=== PATIENT | female | born 1990 | race American Indian/Alaskan Native ===

== ENCOUNTER 2017-01-30 18:34 | Emergency (ER) | payer SELFPAY ==
[2017-01-30 20:01] LABS: Basophils % (Auto) 0.6 % (0.0-1.8); Eosinophils % (Auto) 0.5 % (0.0-4.3); Hematocrit 40.2 % (30.3-42.9); Mean Corpuscular HGB Conc 32 % (30-34); Mean Corpuscular Volume 80 fl (79-97); Platelet Count 286 K/mm3 (140-440); Red Blood Count 5.03 M/mm3 (3.65-5.03); Red Cell Distribution Width 16.7 % (13.2-15.2); White Blood Count 5.3 K/mm3 (4.5-11.0)
[2017-01-30 20:03] LABS: Mean Corpuscular Hemoglobin 26 pg (28-32)
[2017-01-30] MEDS ORDERED: TYLENOL PO ONE (23:18)
[2017-01-30] MEDS ORDERED: NACL 0.9% 1000 ML 1,000 ML IV ONE (23:19)
[2017-01-30] MEDS ORDERED: ZOFRAN IV ONE (23:54)
[2017-01-31 00:20] LABS: Bilirubin,Urine NEG (Negative); Blood,Urine MOD (Negative); Ketones,Urine 80 mg/dL (Negative); Leukocyte Esterase,Urine SM (Negative); Mucus,Urine 3+ /HPF; Nitrite,Urine NEG (Negative)
--- NOTE | 2017-01-31 01:18 | Emergency Department Report ---
HPI - General Chief Complaint: Vaginal Bleeding Time Seen by Provider: 01/30/17 23:16 - HPI HPI: The patient is a 26-year-old , EGA unknown to her, female who presents for evaluation of abdominal pain and vaginal bleeding. The patient reports lower abdominal pain since 1pm earlier today, approximately 12 hours prior to my evaluation, 7/10 in severity, cramping in quality, constant since onset. She also reports minimal vaginal bleeding. The patient denies fever, trauma to the abdomen, diarrhea, blood in the stool, dark tarry stool, dysuria, hematuria, flank pain, genital discharge, inability to pass flatus. ED Past Medical Hx - Past Medical History Previous Medical History?: Yes Additional medical history: Tonsils - Surgical History Past Surgical History?: Yes Additional Surgical History: Tonsil removed - Social History Smoking Status: Current Every Day Smoker Substance Use Type: Alcohol - Medications Home Medications: Home Medications Medication Instructions Recorded Confirmed Last Taken Type Acetaminophen [Tylenol] 500 mg PO Q6HR #30 tablet 01/31/17 Unknown Rx Pnv95/Ferrous Fumarate/FA 1 each PO QDAY #31 tablet 01/31/17 Unknown Rx [ Vitamin Tablet] ED Review of Systems ROS: Stated complaint: BLEEDING /PREG Other details as noted in HPI Constitutional: denies: fever ENT: denies: throat or neck pain Respiratory: denies: cough, shortness of breath Cardiovascular: denies: chest pain Endocrine: denies unexplained weight loss or gain Gastrointestinal: reports abdominal pain, nausea Genitourinary: reports vaginal bleeding denies: dysuria Musculoskeletal: denies: leg swelling Skin: denies: rash Neurological: denies: headache Hematological/Lymphatic: denies: easy bleeding or easy bruising Psych: denies sadness or hopelessness Physical Exam - Physical Exam Vital Signs: Vital Signs 01/30/17 01/30/17 19:05 23:36 Temperature 98.7 F 97 F L Pulse Rate 91 H 80 Respiratory 18 18 Rate Blood Pressure 136/83 Blood Pressure 106/70 [Left] O2 Sat by Pulse 97 100 Oximetry Physical Exam: General: well-nourished, well-developed, no acute distress Head: Normocephalic, atraumatic Eyes: normal sclera ENT: Mucous membranes are pale and dry Neck: trachea midline, neck supple, No neck stiffness, no cervical adenopathy Respiratory: Breath sounds equal bilaterally, no wheezing, rales, or rhonchi Cardio: S1 and S2 present, no murmurs, rubs, gallops, capillary refill is delayed Abdomen: Normoactive bowel sounds, soft abdomen, suprapubic and bilateral lower quadrant tenderness to palpation present, no rigidity, no guarding or rebound tenderness Musc: No pitting edema Skin: No rash Neuro: no facial drooping, normal speech Psych: Normal affect ED Course Vital Signs 01/30/17 01/30/17 19:05 23:36 Temperature 98.7 F 97 F L Pulse Rate 91 H 80 Respiratory 18 18 Rate Blood Pressure 136/83 Blood Pressure 106/70 [Left] O2 Sat by Pulse 97 100 Oximetry ED Medical Decision Making - Lab Data Result diagrams: 01/30/17 19:46 01/31/17 00:43 - Medical Decision Making The patient was seen and examined by myself. The patient is placed on a director of cardiac cath lab and continuous pulse ox. On initial evaluation, the patient was found to be in no distress. Evaluation orders are placed. IV access is established and the patient is given 1 L normal saline fluid bolus and Zofran for nausea, and an a tablet of Tylenol for pain. Lab results were revealed elevated hCG, and otherwise labs were not concerning including normal platelet level, hemoglobin, hematocrit. Ultrasound of the pelvis reveals live intrauterine with heart rate within normal limits. Patient informed of risk of threatened miscarriage. The patient was reevaluated and reported that their symptoms were markedly improved. The patient is stable for discharge with outpatient follow-up. The patient is given follow-up and return instructions. The patient expressed understanding and agreed with the plan. The patient is discharged in stable condition. Critical care attestation.: If time is entered above; I have spent that time in minutes in the direct care of this critically ill patient, excluding procedure time. ED Disposition Clinical Impression: Abdominal pain, acute, bilateral lower quadrant, Dehydration, Threatened miscarriage in early Disposition: DISCHARGED TO HOME OR SELFCARE Is pt being admited?: No Does the pt Need Aspirin: No Condition: Stable Instructions: Threatened Miscarriage (ED) Prescriptions: Acetaminophen [Tylenol] 500 mg PO Q6HR #30 tablet Pnv95/Ferrous Fumarate/FA [ Vitamin Tablet] 1 each PO QDAY #31 tablet Referrals: PRIMARY CARE, [Primary Care Provider] - 3-5 Days [facility] [Provider Group] - 3-5 Days CHEVY JACKMAN MD [Staff Physician] - 3-5 Days Time of Disposition: 01:19
[2017-01-31 01:29] LABS: Anion Gap 22 mmol/L; BUN/Creatinine Ratio 6.66; Blood Urea Nitrogen 4 mg/dL (7-17); Calcium 9.1 mg/dL (8.4-10.2); Carbon Dioxide 19 mmol/L (22-30); Chloride 99.2 mmol/L (98-107); Glucose 82 mg/dL (65-100); Potassium 3.8 mmol/L (3.6-5.0); Sodium 136 mmol/L (137-145)
--- NOTE | 2017-01-31 01:49 | Ultrasound Report ---
FINAL REPORT PROCEDURE: US OB TRANSVAGINAL TECHNIQUE: Real-time transvaginal sonography of the uterus, placenta, amniotic fluid, adnexa, and fetus was performed with image documentation. Measurements were obtained to determine age/size. M-mode Doppler was used to document heartbeat. CPT 07068 HISTORY: , VB, abd pain COMPARISON: No prior studies are available for comparison. FINDINGS: CRL: 10mm, which corresponds to a gestational age of: 7weeks, 0 days. Yolk Sac: Normal. Embryonic Cardiac Activity: 141 beats per minute Gestational Sac: There is a subchorionic hematoma measuring 14 x 6 x 6 millimeters. Right Ovary: Normal. Left Ovary: There is a solid-appearing mass in the left ovary measuring 2.2 centimeters which could be a hemorrhagic corpus luteal cyst. Estimated delivery date: 09/19/2017 Comment: Complete anatomic survey at 18-20 weeks suggested. IMPRESSION: 1. Single living intrauterine gestation at approximately 7 weeks 2. EDC by US 09/19/2017.
--- NOTE | 2017-01-31 01:49 | Ultrasound Report ---
FINAL REPORT PROCEDURE: US OB transabdominal TECHNIQUE: Real-time transabdominal sonography of the uterus, placenta, amniotic fluid, adnexa, and fetus was performed with image documentation. Measurements were obtained to determine age/size. M-mode Doppler was used to document heartbeat. HISTORY: , VB, abd pain COMPARISON: No prior studies are available for comparison. FINDINGS: CRL: 10mm, which corresponds to a gestational age of: 7weeks, 0 days. Yolk Sac: Normal. Embryonic Cardiac Activity: 141 beats per minute Gestational Sac: There is a subchorionic hematoma measuring 14 x 6 x 6 millimeters. Right Ovary: Normal. Left Ovary: There is a solid-appearing mass in the left ovary measuring 2.2 centimeters which could be a hemorrhagic corpus luteal cyst. Estimated delivery date: 09/19/2017 Comment: Complete anatomic survey at 18-20 weeks suggested. IMPRESSION: 1. Single living intrauterine gestation at approximately 7 weeks 2. EDC by US 09/19/2017.
[2017-01-31 03:05] VITALS: BP 106/80
== END 2017-01-31 03:06 | disposition home or self-care (01) ==
LOC: ED 18:34
DX: O20.0 Threatened abortion (principal); O99.281 Endocrine, nutritional and metabolic diseases complicating pregnancy, first trimester; E86.0 Dehydration; O99.331 Smoking (tobacco) complicating pregnancy, first trimester; Z3A.01 Less than 8 weeks gestation of pregnancy
CPT/HCPCS: 36415; 76801; 76817; 80048; 81001; 84702; 85025; 86850; 86900; 86901; 96361; 96374; 99284; J2405; J7030